=== PATIENT | female | born 1985 | race Hispanic/Latino ===

== ENCOUNTER 2016-04-01 09:31 | Inpatient (IN) | payer OTHER ==
[~2016-04-01] VITALS: Ht 147.3 cm; Wt 65.8 kg
[~2016-04-01 09:31] MED LIST: HYDR-3740 PO; ONDA8TAB7 PO; PREN-57 PO
[2016-04-01] MEDS ORDERED: Oxytocin 10 Unit/mL Inj IM PRN ×2 (10:30→15:15)
[2016-04-01] MEDS ORDERED: fentaNYL-PF 50 mCg/mL 2 mL Inj IVPUSH PRN (10:30)
[2016-04-01] MEDS ORDERED: Penicillin G K Inj 5,000,000 UNITS in Dextrose 5% Minibag Plus 100 ML IV ONE (10:30)
[2016-04-01] MEDS ORDERED: Methylergonovine 0.2 mg/mL Inj IM PRN ×2 (10:30→15:15)
[2016-04-01] MEDS ORDERED: Oxytocin 30 Units/500 mL LR 30 UNITS in IV Premix 1 EACH IV PRN ×2 (10:30→15:15)
[2016-04-01] MEDS ORDERED: Sodium Chloride LOK Flush 10 mL Syringe IVFLUSH PRN (10:30)
[2016-04-01] MEDS ORDERED: Hemorrhage Kit, Post Partum XX ONE ×2 (10:30→15:15)
[2016-04-01] MEDS ORDERED: Carboprost 250 mCg/mL Inj IM PRN ×2 (10:30→15:15)
[2016-04-01 10:42] LABS: Mean Corpuscular Hemoglobin 26.5 pg (27.0-35.0)
[2016-04-01] MEDS: Lactated Ringer's 1,000 ML IV PRN ×2 (10:48→12:51)
[2016-04-01] MEDS ORDERED: fentaNYL 2 mCg/mL-Bupivicaine 0.125% 100 mL Premix EPIDURAL ONE (14:20)
[2016-04-01] MEDS ORDERED: Lactated Ringer's 500 ML IV ONE (14:27)
--- NOTE | 2016-04-01 14:27 | PCM.HPANE ---
Patient Data Surgeon Admitting Provider:Chadwick Oropeza MD Attending Provider:Chadwick Oropeza MD Primary Care Physician:Chadwick Oropeza MD Other Provider: Reason for Visit Early Labor EARLY LABOR Ht/WT & BMI Body Mass Index Allergies Coded Allergies: No Known Allergies (Verified , 02/07/16) Past Anesthesia History Anesthesia History: Denies:: Anesthesia Reactions, Malignant Hyperthermia Diabetes History Hx Diabetes?: No MRSA MRSA: No Medications Active Scripts Hydrocodone-Acetaminophen 10-325 mg 1 Each Tablet1 Tablet PO Q6H PRN For Pain # 20 TABLET Ref 0 Prov:Sol Ovalles MD 02/07/16 Ondansetron ODT (Zofran ODT)8 Mg Tablet8 Mg PO Q4H PRN For Nausea #30 TABLET Prov:Sol Ovalles MD 02/07/16 Reported Medications Pnv No.118/Iron Fumarate/FA ( 19 Chewable Tablet)1 Each Tab.chew1 Each PO DAILY 11/28/15 History History of ENT Problems?: No HEENT History: Denies:: Hearing Problem Hx of Heart Problems?: No Cardiovascular History: Denies:: Congestive Heart Failure Edema Heart Murmur Hypertension Irregular Heartbeat Hx of Respiratory Problem?: No Respiratory History: Denies:: Asthma COPD Dyspnea Emphysema Oxygen Administration Pneumonia Pulmonary Embolism Tuberculosis Use of C-PAP Machine Hx Neurologic Problems?: No Neurological History: Denies:: CVA Headaches Multiple Sclerosis Parkinson's Disease Seizures Hx of GI Problems?: No Gastrointestinal History: Denies:: Cirrhosis Gastroesphageal Reflux Gastrointestinal Bleeding Heartburn Hx of Problems?: Yes Genitourinary History: Positive for:: Kidney Stones (LT URETERAL STONE= CURRENT PROBLEM ) Urinary Tract Infection Denies:: HX of Hemodialysis HX of Peritoneal Dialysis: No Female Hx: Positive for:: Currently (28 weeks) Denies:: Endometriosis Pelvic Inflammatory Problems with Breasts? Skin History: Denies:: History Skin Disorders? Pressure Ulcers Hx Musculoskeletal Problems?: No Musculoskeletal History: Denies:: Back Injury Musculoskeletal Trauma Hx of Psycho/Social Problems?: No Hx Surgeries?: Yes (venancio, appe, cysto with stent) Hx Any Other Health Problems?: No Other History: Positive for:: Hospitalization (CHILDBIRTH) Denies:: Cancer Endocrine Disease Thyroid Disease History Blood Transfusions: Denies:: Blood Transfusions Hx Diabetes: No Hx Alcohol Use: NoHx Substance Use: No Smoking Status: Never Smoker Have You Smoked inLast 12 mo: No Stop/Bang Risk Assessment Category Category 1A: Patient has history of documented sleep apnea, and HAS NOT received any narcotic, sedative or anesthesia administration during this stay. Category 1B: Patient has history of documented sleep apnea, and HAS received any narcotic , sedative or anesthesia administration during this stay Category 2: Patient has SUSPECTED Obstructive Sleep Apnea, and HAS received any narcotic , sedative or anesthesia administration during this stay. Category 3: Patient has SUSPECTED Obstructive Sleep Apnea and HAS NOT received narcotic, sedative or anesthesia administration during this stay. Category 4: Outpatient in Procedural Areas with known sleep apnea or who screen positive for High Risk via the STOP/BANG questionnaire. Exam Exam General Appearance: Alert, Oriented X3, Cooperative, No Acute Distress HEENT/AIRWAY: MP 2 Lungs: Clear to Auscultation, Normal Air Movement Heart: Exam Unremarkable, Regular Rate/Rhythm, No Murmurs/Rubs/Gallops Meds/Labs/Diagnostics Admission Meds Current Medications Penicillin G Potassium/ Dextrose/Water (Pfizerpen Inj/ D5W Minibag Plus) 100 ml @ 240 mls/hr ONCE ONCE IV Last administered on 04/01/16t 10:48; Start 04/01/16 at 10:30; Stop 04/01/16 at 10:54; Status DC Labs Test 04/01/16 10:00 White Blood Count 8.8th/mm3 (3.8-10.1) Red Blood Count 3.62mil/mm3 (3.90-5.20) Hemoglobin 9.6g/dL (12.0-15.6) Hematocrit 30.4% (35.0-46.0) Mean Corpuscular Volume 84.0fL (81-100) Mean Corpuscular Hemoglobin 26.5pg (27.0-35.0) Mean Corpuscular Hemoglobin Concent 31.6% (32.0-37.0) Red Cell Distribution Width 14.3% (12.3-15.4) Platelet Count 203bil/L (150-400) Plan Impression Patient chart reviewed, patient interviewed and anesthestic plan with risks, benefits, and alternatives discussed, and informed consent obtained. NPO Status: 01/15 at 2030 ASA Physical Status: ASA2 Mod Systemic Disease Anesthetic Plan: Epidural Bene/Risks/Altern/Consents: Yes HP Complete Prior to Induction: Yes Lovely Sarah MD Apr 01, 2016 14:27
[2016-04-01] MEDS: Penicillin G K Inj 3,000,000 UNITS in IV Premix 1 EACH IV SCH ×2 (14:29→20:30)
[2016-04-01] MEDS ORDERED: Ondansetron 2 mg/mL 2 mL Inj IVPUSH PRN (14:30)
[2016-04-01] MEDS ORDERED: Atropine 1 mg/10 mL (Code) Syringe IVPUSH PRN (14:30)
[2016-04-01] MEDS ORDERED: fentaNYL 2 mCg/mL-Bupiv 0.125% 100 ML EPIDURAL SCH (14:30)
[2016-04-01] MEDS ORDERED: EPHEDrine Sulfate 50 mg/mL Inj IVPUSH PRN (14:30)
[2016-04-01] MEDS ORDERED: TdaP Vaccine 0.5 mL Inj IM ONE (15:15)
[2016-04-01] MEDS ORDERED: Witch Hazel-Glycerin Pads TOPICAL PRN (15:15)
[2016-04-01] MEDS ORDERED: HYDROcodone-APAP 5-325 mg Tablet PO PRN (15:15)
[2016-04-01] MEDS ORDERED: Influenza (Adult) Vaccine 0.5 mL Syringe IM ONE (15:15)
[2016-04-01] MEDS ORDERED: LANOlin HPA 7 Gm Ointment TOPICAL PRN (15:15)
[2016-04-01] MEDS ORDERED: Measles-Mumps-Rubella Vaccine 0.5 mL Inj SUBQ ONE (15:15)
[2016-04-01] MEDS: Lactated Ringer's 1,000 ML IV SCH ×4 (15:15→23:15)
[2016-04-01] MEDS ORDERED: Benzocaine (Dermoplast) 20% 60 Gm Spray TOPICAL PRN (15:15)
[2016-04-01] MEDS ORDERED: Bupivacaine-MPF 0.25% 30 mL Inj ONE (17:25)
[2016-04-02] MEDS: Penicillin G K Inj 3,000,000 UNITS in IV Premix 1 EACH IV SCH ×4 (04:30→14:20)
[2016-04-02] MEDS: Lactated Ringer's 1,000 ML IV SCH ×4 (06:27→15:15)
[2016-04-02 07:43] LABS: Mean Corpuscular Hemoglobin 26.3 pg (27.0-35.0); Mean Corpuscular Volume 84.3 fL (81-100)
--- NOTE | 2016-04-02 16:23 | PCM.DIOB ---
Obstetrical Disch Instruction Dates of Hospitalization Date of Hospital Admission Apr 01, 2016 at 10:11 Providers Admitting Physician: Chadwick Oropeza MD Primary Care Physician: Chadwick Oropeza MD Attending Physician: Chadwick Oropeza MD Discharge Diagnosis Problems: (1) Status: Acute ICD Code: Z33.1 Diet Discharge Diet: No restrictions Activity Discharge Activity-General: Pelvic Rest for 6 weeks Dressing and Incisional Care Hygiene: May shower, Perineal care, Sitz bath, Dermoplast spray, Witch Elina pads, Ice Follow Up Plan Follow-up appointment: Weeks (Follow up in 6 weeks for checkup.) Call your provider for: Fever or Chills, Shortness of breath, Heavy vaginal bleeding, Red painful breasts Chadwick Oropeza MD Apr 02, 2016 16:23
[2016-04-02] MEDS ORDERED: IBUP-1827 PO (16:25)
[2016-04-02] MEDS ORDERED: DOCU-41 PO (16:25)
[2016-04-02] MEDS ORDERED: HYDR-4003 PO (16:25)
[2016-04-02 17:00] VITALS: BP 125/71; PULSE 82; RESP 18
--- NOTE | 2016-04-03 07:47 | PCM.ANEP2 ---
Post Anesthesia Evaluation ASA/CMS Post Anesthesia VS in Patient's Normal Range?: Yes Resp Stable; Airway Patent?: Yes CV Function & Hydration Stable: Yes Mental Status Recovered?: Yes Pain control Satisfactory?: Yes N/V Control Satisfactory?: Yes Lovely Sarah MD Apr 03, 2016 07:47
--- NOTE | 2016-04-03 07:47 | PCM.ANEP1 ---
Post Anesthesia Phase 1 PACU Phase 1 Assessment Anesthetic Administered: Epidural Level of Alertness: Awake, talking JIMENEZ's with Equal Strength: Yes Pain: No Pain Scale Score: 0 Nausea or Vomiting: No Oxygen Delivery: Room Air Lungs: Clear to Auscultation, Normal Air Movement Lovely Sarah MD Apr 03, 2016 07:46
--- NOTE | 2016-04-03 23:12 | PROG NOTE ---
[address] [address] PROGRESS NOTE PATIENT: BURAK COY : 1985 MR#: [id number] ADMIT: 04/01/2016 JOB ID: [id number] [facility] NOTE: DATE: 04/01/2016. Time: 1900 hours. HISTORY: Patient was admitted today at full term with rupture of membranes perhaps occurring between 5 and 7 in the morning of April 01, 2016. Amniotic fluid has been clear. Contractions have occurred although not particularly intense, thus leading to the decision for Pitocin augmentation. Penicillin G was also provided in light of group B strep test positivity, for prophylaxis. Note that the patient has bilateral ureteral stents in place in light of symptomatic bilateral kidney stones. Uterine contraction pattern responded well to Pitocin augmentation and cervical dilatation progress gradually occurred. Ultimately, once four hours had passed after first dose of penicillin G, artificial rupture of membranes of fore-bag was accomplished and additional clear fluid was recovered. Cervix steadily dilated further from that point onward until complete cervical dilatation was achieved. Note that patient had received two epidurals, the first rather ineffective in controlling pain, the second much improved. Once completely dilated, the patient learned to push very well and steadily brought down the head to and then delivery followed by the shoulders, body, and extremities. Baby was active and crying and vigorous and was, thus, handed to mother for bonding and further nurse management including drying and stimulation. After a 1 minute delay, umbilical cord was no longer pulsating, and was thus clamped and cut. Cord blood was obtained for routine studies. Betadine solution was used to cleanse the vulvovaginal region. Only laceration was that of small midline second-degree perineal laceration that was easily repaired with 3-0 chromic suture in running deep and then more superficial layers. Hemostasis was noted to be complete. Note that placenta was gradually and ultimately delivered spontaneously, although membranes only more gradually . Ultimately, membranes were expelled as well after about 30 minutes following delivery of placenta proper. In light of lengthy time before delivery of membranes that were rather adherent and with some bleeding starting to increase by about 30 minutes following delivery, and in spite of massage plus intravenous Pitocin infusion, the decision was made to perform curettage which was accomplished in the delivery room as follows: Using sterile technique and with Betadine solution cleansing of the vulvovaginal region, gentle intrauterine hand palpation and curettage was accomplished with return of a small amount of membranous material, but no placental tissue. No additional tissue was recovered then. Continuing to use sterile technique, large curette ( or Tigre's curette) was advanced to the uterine cavity and gentle sharp curettage was accomplished with return of no additional membranous or placental tissue. Uterus then contracted reasonably well with massage plus intravenous Pitocin infusion. Note blood loss in the 250 cc range. Final vulvar, vaginal, cervical inspections were accomplished and there was no bleeding. Of note, no sign of infection, no obvious retained membranes or placenta, etc. It certainly is felt that mother and baby will do very well during the timeframe. There are several points worth noting pertaining to this and delivery in the future. First, patient was group B strep test positive and she did receive two doses of penicillin G during labor. Second, there are bilateral stents in place in light of bilateral symptomatic kidney stones. Patient will return to the [facility] to have stents removed and stones blasted. Third, although membranes had been adherent, for the most part they were expelled spontaneously with only minimal residual membranes removed with curettage with hand and with Tigre's curette. Fourth, epidural was difficult to place, the first much less effective than the second. The anesthesiologist reports that patient now admits to having scoliosis which could certainly account for the difficulty in placement of epidural catheter. Fifth, note that patient essentially did not gain any weight during the although steadily encouraged.
--- NOTE | 2016-04-03 23:55 | HP ---
[address] [address] HISTORY AND PHYSICAL PATIENT: BURAK COY : 1985 MR#: [id number] ADMIT: 04/01/2016 JOB ID: [id number] CORRECTED REPORT: [facility] NOTE: DATE: 04/01/2016 HISTORY: Patient is a 30-year-old, G3, P2, AB 0, woman followed prenatally at [facility]. See record for details. course has been complicated by bilateral kidney stones, each obstructing at times in the , leading to bilateral stents, which patient has had in for some time and then underwent replacement. These procedures were accomplished at the [facility] where she will followup during the timeframe for stent removal as well as destruction of stones. Note the patient is group B strep test positive, she is mildly anemic, and she had essentially no weight gain during the (3 pounds total). Fundal height growth was always appropriate, however. Patient believes that she may have ruptured membranes somewhere between 5 and 7 a.m. on the morning of admission, i.e. on April 01, 2016. Some hours after rupture, she presented to the hospital for evaluation and was found to be grossly ruptured and having some contractions, but no true labor. Fluid was clear. Patient was afebrile. Decision was made to hospitalize in light of rupture of membranes at term, i.e. at 40 and 1/7th weeks of gestation, and to undergo Pitocin augmentation of labor while also providing penicillin G in the setting of group B strep test positivity. In summary, then, this patient was admitted to [facility] on April 01, 2016, at 40 and 1/7th weeks of gestation with spontaneous rupture of membranes and uterine contractions although no true progressive labor at point of admission. PHYSICAL EXAMINATION: HEIGHT: 4 feet 10-1/2 inch. NECK: No thyromegaly. LUNGS: Clear to auscultation and percussion. HEART: Regular in rate and rhythm. ABDOMEN: Fundal height consistent with term. Positive heartbeat. PELVIC EXAMINATION: See multiple nurse examinations during labor. Also, see vital signs as noted by nursing staff on admission and during labor. DIAGNOSTIC DATA: Admission white blood cell count 8.8, hemoglobin 9.6, platelets 203. IMPRESSION: 1. A 40 and 1/7th weeks . 2. Spontaneous rupture of membranes. 3. Early uterine contractions although no progressive true labor at time of admission, warranting augmentation with Pitocin. 4. Positive group B strep test warranting antibiotic prophylaxis during labor. 5. Essentially no weight gain during although fundal height growth has been appropriate. Note, hyperemesis early on in . 6. Bilateral kidney stones, previously obstructing during earlier, now with bilateral stents as placed at the [facility]. 7. Mild anemia. 8. Rubella immune. 9. Up to date with Tdap and flu shot (both given in January). 10. Small maternal stature although having previously delivered two babies vaginally. 11. Surgical history: a. Reproductive history: Vaginal delivery x2. Note, significant hyperemesis with both pregnancies (as well as with this one). b. Cholecystectomy. c. Appendectomy. 12. Prior cervical area human papillomavirus reportedly, colposcopy accomplished a decade ago. 13. Prior Mirena intrauterine device use, control method planned for ? 14. No known drug allergies. 15. Family history of diabetes (father, uncles, grandmother), hypertension (father), polycystic kidney disease (son), loss of babies (cousin had two babies , uncertain diagnosis). Note that 's father is a recovering alcoholic. PLAN: Patient was admitted to [facility] on April 01, 2016 with ruptured membranes at term. Corrected by ZAHRAA 04/13/16 at 7:34am Report type.
--- NOTE | 2016-04-04 10:43 | DIS ---
[address] [address] DISCHARGE SUMMARY PATIENT: BURAK COY : 1985 MR#: [id number] ADMIT: 04/01/2016 JOB ID: [id number] DIS: 04/02/2016 DISCHARGE DIAGNOSIS: 1. Term , delivered. 2. Retained membranes leading to curettage. 3. Positive group B strep status. 4. Spontaneous rupture of membranes and early labor on admission. 5. Bilateral kidney stones, previously symptomatic, having bilateral stents in place. PROCEDURES PERFORMED DURING HOSPITALIZATION: 1. Labor augmentation. 2. Epidural anesthesia x2. 3. Intravenous antibiotic prophylaxis. 4. Vaginal delivery. 5. Repair of perineal laceration. 6. curettage. 7. Epidural x2. HOSPITAL COURSE: The patient admitted to [facility] on April 01, 2016 on which day procedures were undertaken as described. During the timeframe, patient did well, with stable vitals, afebrile, with reasonable bleeding and pain management, ambulating and voiding, and handling baby well. Note hemoglobin of 7.7, down from 9.6 on admission. The patient has been interested in discharge to home on the first day, i.e., on April 02, 2016, and her request was granted. DISCHARGE PROGRAM: The patient will call p.r.n., yet otherwise she will followup at six weeks for checkup with Dr. Oropeza at [facility]. She will observe pelvic rest for six weeks. I have discussed with her the use of iron rich foods and vitamin daily and also consideration for ferrous sulfate supplementation. Note that prescriptions have been given for hydrocodone-acetaminophen 5-325, ibuprofen 600, and docusate sodium 100 mg. She will also continue using vitamin daily at home while nursing. Note that patient will contact [facility] and inform them of her delivery date. She already has an appointment in just less than two weeks to discuss and/or deal with the stents and for consideration of lithotripsy on the bilateral kidney stones.
== END 2016-04-02 17:26 | disposition home or self-care (01) | DRG 541 ==
LOC: FBCO 09:31 → FBC 10:11
PROVIDERS: ADMIT Obstetrics & Gynecology; ATTEND Obstetrics & Gynecology
PROC: 10E0XZZ Delivery of Products of Conception, External Approach (ICD-10-PCS; principal; 2016-04-01)
PROC: 0KQM0ZZ Repair Perineum Muscle, Open Approach (ICD-10-PCS; 2016-04-01)
PROC: 10D17ZZ Extraction of Products of Conception, Retained, Via Natural or Artificial Opening (ICD-10-PCS; 2016-04-01)
PROC: 10907ZC Drainage of Amniotic Fluid, Therapeutic from Products of Conception, Via Natural or Artificial Opening (ICD-10-PCS; 2016-04-01)
DX: O99.824 Streptococcus B carrier state complicating childbirth (principal); N20.0 Calculus of kidney; Z37.0 Single live birth; Z3A.40 40 weeks gestation of pregnancy; O99.02 Anemia complicating childbirth; D64.9 Anemia, unspecified; O70.1 Second degree perineal laceration during delivery; O69.81X0 Labor and delivery complicated by cord around neck, without compression, not applicable or unspecified